=== PATIENT | female | born 1995 | race Caucasian/White ===

== ENCOUNTER → 2018-02-12 | Outpatient (CLI) | payer MEDICAID ==
[~2018-02-12] MED LIST: OSLT75CRX PO
--- NOTE | 2018-02-12 12:43 | Diagnostic Imaging Report ---
TECHNIQUE: Multiple realtime grayscale images were obtained over the abdomen in various projections. Abdominal ultrasound limited. INDICATION: Abdominal pain. There are no prior studies available for comparison. FINDINGS: There is no evidence for cholelithiasis or acute cholecystitis and the common bile duct is not dilated. The liver does not appear to be enlarged. There is no focal mass involving the liver and the biliary tree is not abnormally dilated. The pancreas and right kidney are unremarkable. There is no mass or free fluid collection evident. IMPRESSION: 1. There is no evidence for an acute abnormality of the right upper quadrant. 2. If clinical concern regarding an underlying abnormality persists, then a nuclear medicine hepatobiliary scan would be recommended for further study. Dictated by: Dictated on workstation # [id number]
--- NOTE | 2018-02-12 12:54 | Diagnostic Imaging Report ---
EXAMINATION: Ultrasound of the Head and neck. INDICATION: Soft tissue mass. FINDINGS: There are no prior studies available for comparison. By history, the patient has a palpable abnormality in the mid upper back. The ultrasound examination of this area, however, shows no discrete solid or cystic mass. If clinical concern regarding an underlying abnormality persists and further imaging is desired, then MRI would be recommended. IMPRESSION: There is no discrete solid or cystic mass in the region of the patient's palpable abnormality. Recommendations as above. Dictated by: Dictated on workstation # [id number]
== END ==
LOC: RAD 08:55
PROVIDERS: ATTEND Nurse Practitioner Family
DX: R10.11 Right upper quadrant pain (principal); R22.0 Localized swelling, mass and lump, head
CPT/HCPCS: 76536; 76705